=== PATIENT | female | born 1975 | race Caucasian/White ===

== ENCOUNTER 2023-09-04 10:10 | Emergency (ER) | payer OTHER ==
[~2023-09-04] VITALS: Ht 157.5 cm; Wt 87.1 kg
[2023-09-04] MEDS ORDERED: METFORMIN HCL500 M2 PO (10:13)
[2023-09-04] MEDS ORDERED: COZAAR100 MG PO (10:14)
[2023-09-04] MEDS ORDERED: HYDROCHLOROTH12.5 MG PO (10:14)
[2023-09-04 10:34] LABS: BASOPHILS 0.5 % (0-2); EOSINOPHILS 1.3 % (0-6); HEMATOCRIT 46.4 % (35.0-50.0); HEMOGLOBIN 15.6 g/dL (12.0-18.0); LYMPHOCYTES 14.4 % (24-44); MCH 31.2 (27-36); MCHC 33.6 g/dl (30-36); MCV 92.8 fl (81-99); MONOCYTES 4.6 % (0-12); NEUTROPHILS 79.2 % (39-80); PLATELET COUNT 324 K/uL (140-440); RDW 12.7 (10.5-15.0)
[2023-09-04 10:44] LABS: ALBUMIN 3.6 g/dL (3.4-5.0); ANION GAP 19.5 (7-21); BILIRUBIN, TOTAL 0.6 ng/dL (0.2-1.0); BUN/CREATININE RATIO 11.25 (6.0-28.6); CALCIUM 8.5 mg/dL (8.5-10.1); CREATININE, SERUM 4.53 mg/dL (0.55-1.02); POTASSIUM 3.5 mmol/L (3.5-5.1); PROTEIN, TOTAL 7.2 g/dL (6.4-8.2)
[2023-09-04 12:08] LABS: BILIRUBIN, URINE POSITIVE (negative); BLOOD/HGB, URINE LARGE (Negative); KETONE, URINE TRACE (Negative); LEUK ESTERASE, URINE MODERATE (negative); NITRITE, URINE NEGATIVE (negative); PH, URINE 5.5 (5-7)
[2023-09-04 12:10] LABS: LACTIC ACID, BLOOD 1.8 mmol/L (0.4-2.0)
[2023-09-04 12:23] LABS: WHITE BLOOD CELLS, URINE 21-40 /HPF (0-5)
[2023-09-04 12:24] LABS: BACTERIA, URINE 1+ /hpf (negative); CASTS, URINE NONE SEEN \\lpf; COLLECTION TYPE, URINE CLEAN CATCH; CRYSTALS, URINE NONE SEEN (0-1+); EPITHELIAL CELLS, URINE SQUAMOUS 1+ /lpf (0-1+); REFLEX CULTURE, URINE Yes (No)
[2023-09-04 17:00] VITALS: BP 100/62
--- NOTE | 2023-09-04 22:36 | EKG ---
[facility] [address] [place] [address] Signed Sinus bradycardia T wave abnormality, consider lateral ischemia Prolonged QT Abnormal ECG No previous ECGs available Confirmed by Nahum Gold MD () on 09/04/2023 10:36:19 PM Electronically Signed By: NAHUM GOLD MD 09/04/23 2236 PATIENT NAME: MARQUEZ SHULTZ SANDY Electrocardiogram DATE OF : 71 PHYSICIAN: NAHUM GOLD MD REPORT #: [id number] REPORT IS CONFIDENTIAL AND NOT TO BE RELEASED WITHOUT AUTHORIZATION
== END 2023-09-04 17:10 | disposition short-term general hospital (02) ==
LOC: ED 10:10
PROVIDERS: Emergency Medicine
DX: K52.9 Noninfective gastroenteritis and colitis, unspecified (principal); A41.9 Sepsis, unspecified organism; N39.0 Urinary tract infection, site not specified; N17.9 Acute kidney failure, unspecified; I10 Essential (primary) hypertension; E11.9 Type 2 diabetes mellitus without complications; Z79.84 Long term (current) use of oral hypoglycemic drugs; Z79.899 Other long term (current) drug therapy
CPT/HCPCS: 36415; 51702; 74176; 80053; 81001; 83605; 83690; 85025; 93005; 93010; 99285-25; J0692; J7030